=== PATIENT | female | born 1960 | race Caucasian/White ===

== ENCOUNTER 2018-05-28 13:36 | Emergency (ER) | payer MEDICARE ==
[~2018-05-28] VITALS: Ht 157.5 cm; Wt 66.4 kg
[2018-05-28] MEDS ORDERED: HYDROcodone/APAP 5/325 TABLET PO PRN (14:30)
[2018-05-28 14:36] LABS: BASOPHILS # (AUTO) 0.04 x10^3/uL (0-0.1); BASOPHILS % (AUTO) 0 % (0-1); EOSINOPHILS # (AUTO) 0.16 x10^3/uL (0-0.4); EOSINOPHILS % (AUTO) 2 % (1-7); LYMPHOCYTES # (AUTO) 1.52 x10^3/uL (1-3.4); LYMPHOCYTES % (AUTO) 16 % (22-44); MD NO; MEAN CORPUSCULAR HEMOGLOBIN 30.8 pg (27.0-34.8); MEAN CORPUSCULAR HGB CONC 33.8 g/dL (32.4-35.8); MEAN PLATELET VOLUME 8.2 fL (7.4-10.4); MONOCYTES # (AUTO) 0.49 x10^3/uL (0.2-0.8); MONOCYTES % (AUTO) 5 % (2-9); NEUTROPHILS # (AUTO) 7.41 x10^3/uL (1.8-6.8); NEUTROPHILS % (AUTO) 77 % (42-75); PLATELET COUNT 285 x10^3/uL (130-400); RED BLOOD COUNT 4.73 x10^6/uL (3.82-5.3)
[2018-05-28 14:45] LABS: ALBUMIN 3.3 g/dL (3.4-5.0); ANION GAP 5 mmol/L (5-15); CALCIUM 9.6 mg/dL (8.5-10.1); CHLORIDE 108 mmol/L (98-107); CREATININE 0.87 mg/dL (0.55-1.02)
--- NOTE | 2018-05-28 14:58 | NUR ---
patient at xray now, accompanied by friend, MD Bean has assessed patient at bedside, GHASSAN KERR on room air prior to leaving rom for xray
[2018-05-28 15:04] LABS: INTERNATIONAL NORMALIZED RATIO 8.63 (0.93-1.1); PROTHROMBIN TIME 84.2 Seconds (9.6-11.5)
[2018-05-28] MEDS ORDERED: HYDROcodone/APAP 5/325 TABLET ONE (15:06)
--- NOTE | 2018-05-28 15:29 | NUR ---
patient has been switched to room 15, this RN to provide report to accepting RN
--- NOTE | 2018-05-28 16:00 | NUR ---
Report from Alberto HENRY.
--- NOTE | 2018-05-28 16:02 | NUR ---
Pt is resting in bed, talking with visitor. Pt is alert, oriented, with NAD. Pt is connected to the monitor. Call light within reach.
--- NOTE | 2018-05-28 16:47 | NUR ---
Tech at bedside for splint.
--- NOTE | 2018-05-28 17:24 | NUR ---
PHARMACY CALLED TO SEND MEDICATION.
[2018-05-28 17:25] VITALS: BP 117/52
[2018-05-28] MEDS ORDERED: PHYTONADIONE 5 MG TABLET PO ONE (17:30)
--- NOTE | 2018-05-28 17:58 | NUR ---
Patient given discharge instructions and they have confirmed that they understand the instructions. Patient ambulatory with steady gait.
== END 2018-05-28 18:17 | disposition home or self-care (01) ==
LOC: ED 15:09
DX: S52.122A Displaced fracture of head of left radius, initial encounter for closed fracture (principal); S20.212A Contusion of left front wall of thorax, initial encounter; I48.91 Unspecified atrial fibrillation; D68.32 Hemorrhagic disorder due to extrinsic circulating anticoagulants; Z95.0 Presence of cardiac pacemaker; W19.XXXA Unspecified fall, initial encounter; Y93.89 Activity, other specified; Y92.89 Other specified places as the place of occurrence of the external cause; Y99.8 Other external cause status
CPT/HCPCS: 29105; 36415; 71045; 71250; 80048; 82040; 85025; 85610; 99284

== ENCOUNTER 2018-06-24 07:35 | Day surgery (SDC) | payer MEDICARE ==
[~2018-06-24] VITALS: Ht 154.9 cm; Wt 63.0 kg
[2018-06-24 08:09] VITALS: BP 96/46
[2018-06-24] MEDS ORDERED: LISI2.5T PO (08:30)
[2018-06-24] MEDS ORDERED: FLUO40CA2 PO (08:30)
[2018-06-24] MEDS ORDERED: POTA10CA PO (08:30)
[2018-06-24] MEDS ORDERED: CETI-158 PO (08:30)
[2018-06-24] MEDS ORDERED: WARF2.5T32 PO (08:30)
[2018-06-24] MEDS ORDERED: CARV6.2512 PO (08:30)
[2018-06-24] MEDS ORDERED: AMIO200T42 PO (08:30)
[2018-06-24] MEDS ORDERED: TRAZ50TA66 PO (08:30)
[2018-06-24] MEDS ORDERED: SPIR25TA5 PO ×2 (08:30)
[2018-06-24] MEDS ORDERED: WARF-36 PO (08:30)
[2018-06-24] MEDS ORDERED: SODIUM CHLORIDE 0.9% 1,000 ML IV SCH (08:30)
[2018-06-24] MEDS ORDERED: FURO-92 PO (08:31)
[2018-06-24 08:34] LABS: BASOPHILS # (AUTO) 0.05 x10^3/uL (0-0.1); BASOPHILS % (AUTO) 1 % (0-1); EOSINOPHILS # (AUTO) 0.04 x10^3/uL (0-0.4); EOSINOPHILS % (AUTO) 0 % (1-7); LYMPHOCYTES % (AUTO) 18 % (22-44); MD NO; MEAN CORPUSCULAR HEMOGLOBIN 30.6 pg (27.0-34.8); MEAN CORPUSCULAR HGB CONC 33.4 g/dL (32.4-35.8); MEAN CORPUSCULAR VOLUME 91.5 fL (80-100); MEAN PLATELET VOLUME 8.1 fL (7.4-10.4); MONOCYTES # (AUTO) 1.33 x10^3/uL (0.2-0.8); MONOCYTES % (AUTO) 14 % (2-9); NEUTROPHILS # (AUTO) 6.43 x10^3/uL (1.8-6.8); NEUTROPHILS % (AUTO) 67 % (42-75); PLATELET COUNT 232 x10^3/uL (130-400); RED BLOOD COUNT 5.39 x10^6/uL (3.82-5.3); RED CELL DISTRIBUTION WIDTH 15.2 % (9.6-15.2)
[2018-06-24 08:40] LABS: INTERNATIONAL NORMALIZED RATIO 1.86 (0.93-1.1); PROTHROMBIN TIME 19.3 Seconds (9.6-11.5)
[2018-06-24 08:43] LABS: CALCIUM 10.5 mg/dL (8.5-10.1); CHLORIDE 99 mmol/L (98-107)
[2018-06-24 08:55] LABS: ALANINE AMINOTRANSFERASE 184 U/L (12-78); ALBUMIN 3.7 g/dL (3.4-5.0); ALKALINE PHOSPHATASE 237 U/L (45-117); ANION GAP 8 mmol/L (5-15); CHOL/HDL RATIO 2.9; CHOLESTEROL, TOTAL 190 mg/dL (140-239); CREATININE 1.57 mg/dL (0.55-1.02); HDL CHOL % 34 % (28-40); HDL CHOLESTEROL (DIRECT) 65 mg/dL (40-60); LDL CHOLESTEROL,CALCULATED 107 mg/dL (54-169); LDL/HDL RATIO 1.6 (0.5-3.0); TOTAL PROTEIN 8.3 g/dL (6.4-8.2); TRIGLYCERIDES 89 mg/dL (50-200); VLDL CHOLESTEROL 18 mg/dL (0-25)
[2018-06-24] MEDS ORDERED: EPINEPHRINE 1 MG/ML, 1ML ONE (15:10)
[2018-06-24] MEDS ORDERED: PROPOFOL 10 MG/ML, 20ML ONE (15:10)
== END 2018-06-24 12:56 | disposition home or self-care (01) ==
LOC: CACL 07:35 → EDSTATUS 09:30 → CACL 12:56
PROVIDERS: ATTEND Internal Medicine Cardiovascular Disease
DX: I48.0 Paroxysmal atrial fibrillation (principal); I42.9 Cardiomyopathy, unspecified; I34.0 Nonrheumatic mitral (valve) insufficiency; I36.1 Nonrheumatic tricuspid (valve) insufficiency; I10 Essential (primary) hypertension; Z88.1 Allergy status to other antibiotic agents; Z88.0 Allergy status to penicillin; Z88.8 Allergy status to other drugs, medicaments and biological substances; Z88.6 Allergy status to analgesic agent
CPT/HCPCS: 36415; 80053; 80061; 84436; 84443; 84481; 85025; 85610; 92960; 93312; 93321; 93325; J0171; J2704

== ENCOUNTER → 2018-07-14 | Outpatient (CLI) | payer MEDICARE ==
[~2018-07-14] MED LIST: AMIO200T42 PO; CARV6.2512 PO; CETI-158 PO; FLUO40CA2 PO; FURO-92 PO; LISI2.5T PO; POTA10CA PO; SPIR25TA5 PO; TRAZ50TA66 PO; WARF-36 PO; WARF2.5T32 PO
== END | disposition home or self-care (01) ==
LOC: CFH 14:25
PROVIDERS: ATTEND Family Medicine
DX: M47.817 Spondylosis without myelopathy or radiculopathy, lumbosacral region (principal)
CPT/HCPCS: 72100

== ENCOUNTER → 2018-08-24 | Outpatient (CLI) | payer MEDICARE | END | disposition home or self-care (01) | LOC: CFH 12:16 | PROVIDERS: ATTEND Family Medicine | DX: Z12.31 Encounter for screening mammogram for malignant neoplasm of breast (principal); Z88.0 Allergy status to penicillin; Z88.2 Allergy status to sulfonamides; Z88.8 Allergy status to other drugs, medicaments and biological substances | CPT/HCPCS: 77067 ==

== ENCOUNTER → 2018-09-17 | Outpatient (CLI) | payer MEDICARE | END | disposition home or self-care (01) | LOC: CFH 10:58 | PROVIDERS: ATTEND Physician Assistant | DX: S52.571A Other intraarticular fracture of lower end of right radius, initial encounter for closed fracture (principal); X58.XXXA Exposure to other specified factors, initial encounter; Y93.89 Activity, other specified; Y92.89 Other specified places as the place of occurrence of the external cause; Y99.8 Other external cause status ==

== ENCOUNTER 2018-10-08 13:02 | Outpatient (CLI) | payer MEDICARE | END 2018-10-08 23:59 | disposition home or self-care (01) | LOC: CFH 13:02 | PROVIDERS: ATTEND Family Medicine | DX: Z13.820 Encounter for screening for osteoporosis (principal); S52.501A Unspecified fracture of the lower end of right radius, initial encounter for closed fracture; M81.0 Age-related osteoporosis without current pathological fracture; X58.XXXA Exposure to other specified factors, initial encounter; Y93.89 Activity, other specified; Y92.89 Other specified places as the place of occurrence of the external cause; Y99.8 Other external cause status | CPT/HCPCS: 77080 ==

== ENCOUNTER 2019-03-17 10:06 | Inpatient (IN) | payer MEDICARE ==
[2019-03-16 10:27] VITALS: BP 125/45
[2019-03-16 10:43] LABS: ANION GAP 5 mmol/L (5-15); CALCIUM 9.9 mg/dL (8.5-10.1); CHLORIDE 107 mmol/L (98-107)
[~2019-03-17] VITALS: Ht 154.9 cm; Wt 69.8 kg
[~2019-03-17 10:06] MED LIST changes: +ALEN70TA6 PO; +DIAZ2TAB3 PO
[2019-03-17] MEDS ORDERED: SODIUM CHLORIDE 0.9% 1,000 ML IV SCH (11:00)
[2019-03-17 11:06] LABS: INTERNATIONAL NORMALIZED RATIO 2.67 (0.93-1.1)
[2019-03-17] MEDS ORDERED: CEFAZOLIN PMX 1GM/50ML 0 ML ONE (11:42)
[2019-03-17] MEDS ORDERED: LIDOCAINE 1%, 20ML ONE (11:43)
[2019-03-17] MEDS ORDERED: CEFAZOLIN 1,000 MG ONE (11:43)
[2019-03-17] MEDS ORDERED: VANCOMYCIN PMX 1GM/200ML 200 ML ONE (11:54)
[2019-03-17] MEDS ORDERED: VANCOMYCIN 500 MG ONE (11:54)
[2019-03-17] MEDS ORDERED: SUCCINYLCHOLINE 20 MG/ML, 10ML ONE (12:02)
[2019-03-17] MEDS ORDERED: EPHEDRINE 50 MG/ML, 1ML ONE ×2 (12:02)
[2019-03-17] MEDS ORDERED: ONDANSETRON 2MG/ML, 2ML ONE (12:02)
[2019-03-17] MEDS ORDERED: PROPOFOL 10 MG/ML, 20ML ONE (12:02)
[2019-03-17] MEDS ORDERED: FENTANYL PF 100 MCG/2ML ONE (12:05)
[2019-03-17] MEDS ORDERED: DEXAMETHASONE 4 MG/ML, 1ML ONE (12:08)
[2019-03-17] MEDS ORDERED: MIDAZOLAM 1 MG/ML, 2ML ONE (13:03)
[2019-03-17] MEDS ORDERED: HOLD MEDICATION MC PRN (13:30)
[2019-03-17] MEDS ORDERED: ALENDRONATE 70 MG TABLET PO SCH (13:30)
[2019-03-17] MEDS ORDERED: DIAZEPAM 5 MG/ML, 2ML IVPush PRN (14:00)
[2019-03-17] MEDS ORDERED: ONDANSETRON ODT 8 MG PO PRN (14:00)
[2019-03-17] MEDS ORDERED: FENTANYL PF 100 MCG/2ML IV PRN (14:00)
[2019-03-17] MEDS ORDERED: OXYcodone 5 MG/5 ML ORAL.SOL UDC PO PRN (14:00)
[2019-03-17] MEDS ORDERED: HYDROmorphone 2 MG/ML, 1ML IVPush PRN (14:00)
[2019-03-17] MEDS ORDERED: LABETALOL 5MG/ML, 20ML IV PRN (14:00)
[2019-03-17] MEDS ORDERED: ACETAMINOPHEN 325 MG TABLET PO PRN (14:00)
[2019-03-17] MEDS ORDERED: hydrALAzine 20 MG/ML, 1ML IV PRN (14:00)
[2019-03-17] MEDS ORDERED: ONDANSETRON 2MG/ML, 2ML IV PRN (14:00)
[2019-03-17] MEDS ORDERED: ALBUTEROL SULFATE 2.5 MG/3 ML NPPB PRN (14:00)
[2019-03-17] MEDS ORDERED: EPHEDRINE 50 MG/ML, 1ML IVPush PRN (14:00)
[2019-03-17] MEDS ORDERED: PROMETHAZINE 12.5 MG SUPP PR PRN (14:00)
[2019-03-17] MEDS ORDERED: MEPERIDINE/PF 25MG/ML,1ML IVPush PRN (14:00)
[2019-03-17] MEDS ORDERED: PROMETHAZINE 25 MG/ML, 1ML IV PRN (14:00)
[2019-03-17] MEDS ORDERED: HALOPERIDOL 5 MG/ML IV PRN (14:00)
[2019-03-17] MEDS ORDERED: MIDAZOLAM 1 MG/ML, 2ML IV PRN (14:00)
[2019-03-17] MEDS: ACETAMINOPHEN 325 MG TABLET PO PRN (15:36)
[2019-03-17] MEDS ORDERED: SODIUM CHLORIDE 0.9% IVPB SCH ×2 (17:00→18:00)
[2019-03-17] MEDS ORDERED: ERAVACYCLINE IVPB SCH ×2 (17:00→18:00)
[2019-03-17] MEDS: ERAVACYCLINE IVPB SCH ×2 (18:34→19:10)
[2019-03-17] MEDS: SODIUM CHLORIDE 0.9% IVPB SCH ×2 (18:34→19:10)
[2019-03-17 19:20] VITALS: BP 102/64
[2019-03-17] MEDS: CARVEDILOL 6.25 MG TABLET PO SCH (20:53)
[2019-03-17] MEDS: SODIUM CHLORIDE FLUSH 10ML SYR IVF SCH (20:54)
[2019-03-17] MEDS: SPIRONOLACTONE 25 MG TABLET PO SCH (21:00)
[2019-03-17] MEDS ORDERED: FUROSEMIDE 40 MG TABLET PO SCH (21:00)
[2019-03-17] MEDS: DIAZEPAM 2 MG TABLET PO SCH (21:30)
[2019-03-17] MEDS: LISINOPRIL 5 MG TABLET PO SCH (21:31)
[2019-03-18 01:25] VITALS: BP 107/56
[2019-03-18] MEDS: SODIUM CHLORIDE 0.9% IVPB SCH ×2 (06:30→19:59)
[2019-03-18] MEDS: ERAVACYCLINE IVPB SCH ×2 (06:30→19:59)
[2019-03-18 07:35] VITALS: BP 107/61
[2019-03-18] MEDS: CARVEDILOL 6.25 MG TABLET PO SCH ×2 (08:10→19:59)
[2019-03-18] MEDS: AMIODARONE 200 MG TABLET PO SCH (08:10)
[2019-03-18] MEDS: SPIRONOLACTONE 25 MG TABLET PO SCH ×2 (08:10→20:00)
[2019-03-18] MEDS: FUROSEMIDE 40 MG TABLET PO SCH ×2 (08:11→16:33)
[2019-03-18] MEDS: ACETAMINOPHEN 325 MG TABLET PO PRN (08:11)
[2019-03-18] MEDS: CETIRIZINE 10 MG TABLET PO SCH (08:11)
[2019-03-18] MEDS: FLUOXETINE HCL 20 MG CAPSULE PO SCH (08:11)
[2019-03-18] MEDS: POTASSIUM CHLORIDE 10 MEQ TABLET.ER PO SCH (08:14)
[2019-03-18] MEDS: SODIUM CHLORIDE FLUSH 10ML SYR IVF SCH ×2 (08:15→20:00)
[2019-03-18] MEDS ORDERED: LISINOPRIL 5 MG TABLET PO SCH (09:00)
[2019-03-18 09:02] LABS: BASOPHILS # (AUTO) 0.02 x10^3/uL (0-0.1); BASOPHILS % (AUTO) 0 % (0-1); EOSINOPHILS % (AUTO) 0 % (1-7); LYMPHOCYTES # (AUTO) 1.09 x10^3/uL (1-3.4); LYMPHOCYTES % (AUTO) 8 % (22-44); MD NO; MEAN CORPUSCULAR HEMOGLOBIN 31.2 pg (27.0-34.8); MEAN CORPUSCULAR VOLUME 94.5 fL (80-100); MEAN PLATELET VOLUME 7.9 fL (7.4-10.4); MONOCYTES # (AUTO) 0.41 x10^3/uL (0.2-0.8); MONOCYTES % (AUTO) 3 % (2-9); NEUTROPHILS # (AUTO) 11.62 x10^3/uL (1.8-6.8); NEUTROPHILS % (AUTO) 88 % (42-75); PLATELET COUNT 246 x10^3/uL (130-400); RED BLOOD COUNT 4.58 x10^6/uL (3.82-5.3); RED CELL DISTRIBUTION WIDTH 14.9 % (9.6-15.2)
[2019-03-18 09:09] LABS: ANION GAP 6 mmol/L (5-15); CHLORIDE 109 mmol/L (98-107)
[2019-03-18] MEDS: HYDROcodone/APAP 5/325 TABLET PO PRN ×2 (11:30→16:33)
[2019-03-18 12:12] LABS: HCT (SEDRATE) 42.8 % (34.6-47.8)
[2019-03-18 12:19] LABS: ALBUMIN 3.3 g/dL (3.4-5.0); BILIRUBIN, DIRECT 0.4 mg/dL (0.1-0.2)
[2019-03-18 12:23] LABS: BILIRUBIN,INDIRECT 0.7 mg/dL (0.0-2.0); BILIRUBIN,TOTAL 1.1 mg/dL (0.2-1.0); C-REACTIVE PROTEIN, QUANT 0.9 mg/dL (0.02-0.49); TOTAL PROTEIN 7.6 g/dL (6.4-8.2)
[2019-03-18 13:19] VITALS: BP 106/62
[2019-03-18] MEDS ORDERED: LIDOCAINE 1%, 10ML ONE (17:11)
[2019-03-18 19:12] VITALS: BP 113/57
[2019-03-18] MEDS: LISINOPRIL 5 MG TABLET PO SCH (20:00)
[2019-03-18] MEDS: DIAZEPAM 2 MG TABLET PO SCH (21:42)
[2019-03-19 00:46] VITALS: BP 98/58
[2019-03-19 05:36] LABS: BASOPHILS # (AUTO) 0.02 x10^3/uL (0-0.1); BASOPHILS % (AUTO) 0 % (0-1); EOSINOPHILS % (AUTO) 0 % (1-7); LYMPHOCYTES # (AUTO) 1.76 x10^3/uL (1-3.4); LYMPHOCYTES % (AUTO) 15 % (22-44); MD NO; MEAN CORPUSCULAR HEMOGLOBIN 31.4 pg (27.0-34.8); MEAN CORPUSCULAR HGB CONC 32.6 g/dL (32.4-35.8); MEAN CORPUSCULAR VOLUME 96.1 fL (80-100); MEAN PLATELET VOLUME 8.3 fL (7.4-10.4); MONOCYTES # (AUTO) 0.86 x10^3/uL (0.2-0.8); MONOCYTES % (AUTO) 7 % (2-9); NEUTROPHILS % (AUTO) 78 % (42-75); PLATELET COUNT 241 x10^3/uL (130-400); RED BLOOD COUNT 4.43 x10^6/uL (3.82-5.3)
[2019-03-19 05:41] LABS: ALANINE AMINOTRANSFERASE 42 U/L (12-78); ANION GAP 5 mmol/L (5-15); CALCIUM 9.5 mg/dL (8.5-10.1); CHLORIDE 110 mmol/L (98-107); CREATININE 0.93 mg/dL (0.55-1.02)
[2019-03-19 05:43] LABS: ALKALINE PHOSPHATASE 136 U/L (45-117); BILIRUBIN,TOTAL 0.8 mg/dL (0.2-1.0)
[2019-03-19 07:22] VITALS: BP 97/59
[2019-03-19] MEDS: AMIODARONE 200 MG TABLET PO SCH (08:21)
[2019-03-19] MEDS: SODIUM CHLORIDE 0.9% IVPB SCH ×2 (08:21→20:54)
[2019-03-19] MEDS: ERAVACYCLINE IVPB SCH ×2 (08:21→20:54)
[2019-03-19] MEDS: FUROSEMIDE 40 MG TABLET PO SCH ×2 (08:21→16:44)
[2019-03-19] MEDS: CARVEDILOL 6.25 MG TABLET PO SCH ×2 (08:22→21:23)
[2019-03-19] MEDS: CETIRIZINE 10 MG TABLET PO SCH (08:22)
[2019-03-19] MEDS: FLUOXETINE HCL 20 MG CAPSULE PO SCH (08:22)
[2019-03-19] MEDS: SPIRONOLACTONE 25 MG TABLET PO SCH ×2 (08:22→21:00)
[2019-03-19] MEDS: SODIUM CHLORIDE FLUSH 10ML SYR IVF SCH ×2 (08:22→21:24)
[2019-03-19] MEDS: POTASSIUM CHLORIDE 10 MEQ TABLET.ER PO SCH (08:23)
[2019-03-19 14:02] VITALS: BP 94/62
[2019-03-19 19:14] VITALS: BP 112/56
[2019-03-19] MEDS: HYDROcodone/APAP 5/325 TABLET PO PRN (21:22)
[2019-03-19] MEDS: LISINOPRIL 5 MG TABLET PO SCH (21:23)
[2019-03-19] MEDS: DIAZEPAM 2 MG TABLET PO SCH (21:23)
[2019-03-20] MEDS: HYDROcodone/APAP 5/325 TABLET PO PRN (00:15)
[2019-03-20 00:35] VITALS: BP 125/76
[2019-03-20] MEDS: ALENDRONATE 70 MG TABLET PO SCH (06:47)
[2019-03-20 06:54] VITALS: BP 95/62
[2019-03-20] MEDS: FLUOXETINE HCL 20 MG CAPSULE PO SCH (09:33)
[2019-03-20] MEDS: AMIODARONE 200 MG TABLET PO SCH (09:33)
[2019-03-20] MEDS: FUROSEMIDE 40 MG TABLET PO SCH ×2 (09:33→15:11)
[2019-03-20] MEDS: CETIRIZINE 10 MG TABLET PO SCH (09:33)
[2019-03-20] MEDS: CARVEDILOL 6.25 MG TABLET PO SCH ×2 (09:34→21:32)
[2019-03-20] MEDS: SPIRONOLACTONE 25 MG TABLET PO SCH ×2 (09:34→21:32)
[2019-03-20] MEDS: ERAVACYCLINE IVPB SCH ×2 (10:41→21:31)
[2019-03-20] MEDS: SODIUM CHLORIDE 0.9% IVPB SCH ×2 (10:41→21:31)
[2019-03-20] MEDS: DOCUSATE 100 MG CAPSULE PO SCH ×2 (11:11→21:33)
[2019-03-20] MEDS: ENOXAPARIN 40 MG/0.4 ML SQ SCH (11:11)
[2019-03-20] MEDS: POTASSIUM CHLORIDE 10 MEQ TABLET.ER PO SCH (11:12)
[2019-03-20] MEDS: SODIUM CHLORIDE FLUSH 10ML SYR IVF SCH ×2 (11:13→21:33)
[2019-03-20 13:28] VITALS: BP 106/72
[2019-03-20 18:40] VITALS: BP 120/69
[2019-03-20] MEDS: LISINOPRIL 5 MG TABLET PO SCH (21:32)
[2019-03-20] MEDS: DIAZEPAM 2 MG TABLET PO SCH (21:43)
[2019-03-21 00:51] VITALS: BP 125/86
[2019-03-21 07:56] VITALS: BP 123/74
[2019-03-21] MEDS: CARVEDILOL 6.25 MG TABLET PO SCH ×2 (08:22→21:25)
[2019-03-21] MEDS: FUROSEMIDE 40 MG TABLET PO SCH ×2 (08:22→16:27)
[2019-03-21] MEDS: FLUOXETINE HCL 20 MG CAPSULE PO SCH (08:22)
[2019-03-21] MEDS: CETIRIZINE 10 MG TABLET PO SCH (08:22)
[2019-03-21] MEDS: SODIUM CHLORIDE FLUSH 10ML SYR IVF SCH ×2 (08:23→21:26)
[2019-03-21] MEDS: SPIRONOLACTONE 25 MG TABLET PO SCH ×2 (08:23→21:14)
[2019-03-21] MEDS: POTASSIUM CHLORIDE 10 MEQ TABLET.ER PO SCH (08:23)
[2019-03-21] MEDS: DOCUSATE 100 MG CAPSULE PO SCH ×2 (08:23→21:18)
[2019-03-21] MEDS: AMIODARONE 200 MG TABLET PO SCH (08:23)
[2019-03-21] MEDS: ERAVACYCLINE IVPB SCH ×2 (09:06→21:24)
[2019-03-21] MEDS: SODIUM CHLORIDE 0.9% IVPB SCH ×2 (09:06→21:24)
[2019-03-21] MEDS: ENOXAPARIN 40 MG/0.4 ML SQ SCH (10:10)
[2019-03-21 12:25] VITALS: BP 105/69
[2019-03-21 18:47] VITALS: BP 126/69
[2019-03-21] MEDS: DIAZEPAM 2 MG TABLET PO SCH (21:24)
[2019-03-21] MEDS: LISINOPRIL 5 MG TABLET PO SCH (21:25)
[2019-03-21] MEDS: HYDROcodone/APAP 5/325 TABLET PO PRN (23:59)
[2019-03-22 01:22] VITALS: BP 96/56
[2019-03-22 06:45] VITALS: BP 92/54
[2019-03-22] MEDS: DOCUSATE 100 MG CAPSULE PO SCH ×2 (09:00→21:00)
[2019-03-22] MEDS: POTASSIUM CHLORIDE 10 MEQ TABLET.ER PO SCH (09:00)
[2019-03-22 09:10] VITALS: BP 110/62
[2019-03-22] MEDS: SODIUM CHLORIDE 0.9% IVPB SCH ×2 (09:11→21:00)
[2019-03-22] MEDS: ERAVACYCLINE IVPB SCH ×2 (09:11→21:00)
[2019-03-22] MEDS: AMIODARONE 200 MG TABLET PO SCH (09:12)
[2019-03-22] MEDS: CETIRIZINE 10 MG TABLET PO SCH (09:19)
[2019-03-22] MEDS: FLUOXETINE HCL 20 MG CAPSULE PO SCH (09:20)
[2019-03-22] MEDS: SPIRONOLACTONE 25 MG TABLET PO SCH ×2 (09:20→21:00)
[2019-03-22] MEDS: FUROSEMIDE 40 MG TABLET PO SCH ×2 (09:21→16:06)
[2019-03-22] MEDS: CARVEDILOL 6.25 MG TABLET PO SCH ×2 (09:22→21:00)
[2019-03-22] MEDS: ENOXAPARIN 40 MG/0.4 ML SQ SCH (09:23)
[2019-03-22] MEDS: SODIUM CHLORIDE FLUSH 10ML SYR IVF SCH ×2 (09:23→21:00)
[2019-03-22 12:52] VITALS: BP 126/75
[2019-03-22] MEDS: HYDROcodone/APAP 5/325 TABLET PO PRN ×2 (16:33→21:16)
[2019-03-22 20:34] VITALS: BP 129/76
[2019-03-22] MEDS: DIAZEPAM 2 MG TABLET PO SCH (21:00)
[2019-03-22] MEDS: LISINOPRIL 5 MG TABLET PO SCH (21:00)
[2019-03-23 01:09] VITALS: BP 105/70
[2019-03-23 09:00] VITALS: BP 108/74
[2019-03-23] MEDS: FLUOXETINE HCL 20 MG CAPSULE PO SCH (09:46)
[2019-03-23] MEDS: CARVEDILOL 6.25 MG TABLET PO SCH ×2 (09:47→21:19)
[2019-03-23] MEDS: POTASSIUM CHLORIDE 10 MEQ TABLET.ER PO SCH (09:47)
[2019-03-23] MEDS: CETIRIZINE 10 MG TABLET PO SCH (09:47)
[2019-03-23] MEDS: AMIODARONE 200 MG TABLET PO SCH (09:47)
[2019-03-23] MEDS: FUROSEMIDE 40 MG TABLET PO SCH ×2 (09:48→16:23)
[2019-03-23] MEDS: SPIRONOLACTONE 25 MG TABLET PO SCH ×2 (09:48→21:20)
[2019-03-23] MEDS: SODIUM CHLORIDE FLUSH 10ML SYR IVF SCH ×2 (09:48→21:20)
[2019-03-23] MEDS: DOCUSATE 100 MG CAPSULE PO SCH ×2 (09:48→21:20)
[2019-03-23] MEDS: ENOXAPARIN 40 MG/0.4 ML SQ SCH (09:48)
[2019-03-23] MEDS: ERAVACYCLINE IVPB SCH ×2 (10:08→21:19)
[2019-03-23] MEDS: SODIUM CHLORIDE 0.9% IVPB SCH ×2 (10:08→21:19)
[2019-03-23 14:02] VITALS: BP 104/68
[2019-03-23] MEDS: HYDROcodone/APAP 5/325 TABLET PO PRN ×2 (14:06→21:36)
[2019-03-23 19:29] VITALS: BP 116/60
[2019-03-23] MEDS: LISINOPRIL 5 MG TABLET PO SCH (21:19)
[2019-03-23] MEDS: DIAZEPAM 2 MG TABLET PO SCH (21:20)
[2019-03-24 01:15] VITALS: BP 113/69
[2019-03-24 07:42] VITALS: BP 127/86
[2019-03-24] MEDS: SODIUM CHLORIDE FLUSH 10ML SYR IVF SCH ×2 (08:41→21:27)
[2019-03-24] MEDS: CARVEDILOL 6.25 MG TABLET PO SCH ×2 (08:42→21:28)
[2019-03-24] MEDS: CETIRIZINE 10 MG TABLET PO SCH (08:42)
[2019-03-24] MEDS: FLUOXETINE HCL 20 MG CAPSULE PO SCH (08:43)
[2019-03-24] MEDS: POTASSIUM CHLORIDE 10 MEQ TABLET.ER PO SCH (08:43)
[2019-03-24] MEDS: FUROSEMIDE 40 MG TABLET PO SCH ×2 (08:43→15:35)
[2019-03-24] MEDS: AMIODARONE 200 MG TABLET PO SCH (08:43)
[2019-03-24] MEDS: DOCUSATE 100 MG CAPSULE PO SCH ×2 (08:44→21:28)
[2019-03-24] MEDS: SPIRONOLACTONE 25 MG TABLET PO SCH ×2 (08:48→21:28)
[2019-03-24] MEDS: ERAVACYCLINE IVPB SCH ×2 (09:20→21:27)
[2019-03-24] MEDS: SODIUM CHLORIDE 0.9% IVPB SCH ×2 (09:20→21:27)
[2019-03-24] MEDS: ENOXAPARIN 40 MG/0.4 ML SQ SCH (09:21)
[2019-03-24] MEDS: HYDROcodone/APAP 5/325 TABLET PO PRN ×3 (10:18→21:47)
[2019-03-24 14:12] VITALS: BP 95/63
[2019-03-24 18:45] VITALS: BP 111/51
[2019-03-24] MEDS: DIAZEPAM 2 MG TABLET PO SCH (21:28)
[2019-03-24] MEDS: LISINOPRIL 5 MG TABLET PO SCH (21:29)
[2019-03-25 02:00] VITALS: BP 129/59
[2019-03-25 05:30] LABS: CREATININE 0.84 mg/dL (0.55-1.02)
[2019-03-25 07:29] VITALS: BP 112/50
[2019-03-25] MEDS: FUROSEMIDE 40 MG TABLET PO SCH ×2 (08:03→15:29)
[2019-03-25] MEDS: POTASSIUM CHLORIDE 10 MEQ TABLET.ER PO SCH (08:03)
[2019-03-25] MEDS: SPIRONOLACTONE 25 MG TABLET PO SCH ×2 (08:04→21:22)
[2019-03-25] MEDS: CETIRIZINE 10 MG TABLET PO SCH (08:04)
[2019-03-25] MEDS: FLUOXETINE HCL 20 MG CAPSULE PO SCH (08:04)
[2019-03-25] MEDS: AMIODARONE 200 MG TABLET PO SCH (08:04)
[2019-03-25] MEDS: DOCUSATE 100 MG CAPSULE PO SCH ×2 (08:04→21:00)
[2019-03-25] MEDS: CARVEDILOL 6.25 MG TABLET PO SCH ×2 (08:04→21:22)
[2019-03-25] MEDS: SODIUM CHLORIDE FLUSH 10ML SYR IVF SCH ×2 (08:05→22:00)
[2019-03-25] MEDS: ENOXAPARIN 40 MG/0.4 ML SQ SCH (09:26)
[2019-03-25] MEDS: ERAVACYCLINE IVPB SCH ×2 (09:26→22:00)
[2019-03-25] MEDS: SODIUM CHLORIDE 0.9% IVPB SCH ×2 (09:26→22:00)
[2019-03-25] MEDS: HYDROcodone/APAP 5/325 TABLET PO PRN (12:44)
[2019-03-25 13:25] VITALS: BP 129/84
[2019-03-25 18:42] VITALS: BP 115/77
[2019-03-25] MEDS: DIAZEPAM 2 MG TABLET PO SCH (21:22)
[2019-03-25] MEDS: LISINOPRIL 5 MG TABLET PO SCH (21:23)
[2019-03-26 01:09] VITALS: BP 106/70
[2019-03-26] MEDS: FLUOXETINE HCL 20 MG CAPSULE PO SCH (08:12)
[2019-03-26] MEDS: POTASSIUM CHLORIDE 10 MEQ TABLET.ER PO SCH (08:12)
[2019-03-26] MEDS: AMIODARONE 200 MG TABLET PO SCH (08:12)
[2019-03-26] MEDS: CETIRIZINE 10 MG TABLET PO SCH (08:12)
[2019-03-26] MEDS: SPIRONOLACTONE 25 MG TABLET PO SCH ×2 (08:13→20:26)
[2019-03-26] MEDS: CARVEDILOL 6.25 MG TABLET PO SCH ×2 (08:13→20:18)
[2019-03-26] MEDS: FUROSEMIDE 40 MG TABLET PO SCH ×2 (08:15→14:59)
[2019-03-26] MEDS: DOCUSATE 100 MG CAPSULE PO SCH ×2 (08:15→20:19)
[2019-03-26 08:54] VITALS: BP 133/74
[2019-03-26] MEDS: SODIUM CHLORIDE 0.9% IVPB SCH ×2 (09:12→20:17)
[2019-03-26] MEDS: ERAVACYCLINE IVPB SCH ×2 (09:12→20:17)
[2019-03-26] MEDS: SODIUM CHLORIDE FLUSH 10ML SYR IVF SCH ×2 (09:12→20:28)
[2019-03-26] MEDS: ENOXAPARIN 40 MG/0.4 ML SQ SCH (09:17)
[2019-03-26] MEDS: HYDROcodone/APAP 5/325 TABLET PO PRN (12:54)
[2019-03-26 13:24] VITALS: BP 121/80
[2019-03-26] MEDS: DIAZEPAM 2 MG TABLET PO SCH (20:18)
[2019-03-26] MEDS: LISINOPRIL 5 MG TABLET PO SCH (20:18)
[2019-03-26 21:56] VITALS: BP 102/66
[2019-03-27 03:24] VITALS: BP 121/69
[2019-03-27] MEDS: FUROSEMIDE 40 MG TABLET PO SCH ×2 (06:52→17:03)
[2019-03-27] MEDS: ALENDRONATE 70 MG TABLET PO SCH (06:52)
[2019-03-27 08:33] VITALS: BP 147/82
[2019-03-27] MEDS: SPIRONOLACTONE 25 MG TABLET PO SCH (09:09)
[2019-03-27] MEDS: AMIODARONE 200 MG TABLET PO SCH (09:09)
[2019-03-27] MEDS: DOCUSATE 100 MG CAPSULE PO SCH ×2 (09:09→21:00)
[2019-03-27] MEDS: CARVEDILOL 6.25 MG TABLET PO SCH ×2 (09:09→21:37)
[2019-03-27] MEDS: FLUOXETINE HCL 20 MG CAPSULE PO SCH (09:09)
[2019-03-27] MEDS: ENOXAPARIN 40 MG/0.4 ML SQ SCH (09:10)
[2019-03-27] MEDS: SODIUM CHLORIDE 0.9% IVPB SCH ×2 (09:10→21:38)
[2019-03-27] MEDS: CETIRIZINE 10 MG TABLET PO SCH (09:10)
[2019-03-27] MEDS: POTASSIUM CHLORIDE 10 MEQ TABLET.ER PO SCH (09:10)
[2019-03-27] MEDS: ERAVACYCLINE IVPB SCH ×2 (09:10→21:38)
[2019-03-27] MEDS: SODIUM CHLORIDE FLUSH 10ML SYR IVF SCH ×2 (09:20→21:38)
[2019-03-27] MEDS: HYDROcodone/APAP 5/325 TABLET PO PRN (13:49)
[2019-03-27 14:40] VITALS: BP 144/78
[2019-03-27] MEDS ORDERED: SPIRONOLACTONE 25 MG TABLET PO SCH (17:00)
[2019-03-27 18:46] VITALS: BP 134/66
[2019-03-27] MEDS ORDERED: DIAZEPAM 5 MG TABLET ONE (21:15)
[2019-03-27] MEDS: LISINOPRIL 5 MG TABLET PO SCH (21:37)
[2019-03-27] MEDS: DIAZEPAM 2 MG TABLET PO SCH (21:39)
[2019-03-28 01:05] VITALS: BP 102/48
[2019-03-28] MEDS: FUROSEMIDE 40 MG TABLET PO SCH ×2 (06:09→15:15)
[2019-03-28 06:35] LABS: BASOPHILS # (AUTO) 0.06 x10^3/uL (0-0.1); MD NO; RED CELL DISTRIBUTION WIDTH 15.7 % (9.6-15.2)
[2019-03-28 06:44] LABS: ALANINE AMINOTRANSFERASE 58 U/L (12-78); ALBUMIN 2.7 g/dL (3.4-5.0); ANION GAP 6 mmol/L (5-15); CALCIUM 8.9 mg/dL (8.5-10.1); CHLORIDE 105 mmol/L (98-107); CREATININE 0.79 mg/dL (0.55-1.02)
[2019-03-28 06:51] LABS: ALKALINE PHOSPHATASE 177 U/L (45-117); BASOPHILS % (AUTO) 1 % (0-1); BILIRUBIN,TOTAL 1.6 mg/dL (0.2-1.0); EOSINOPHILS # (AUTO) 0.27 x10^3/uL (0-0.4); EOSINOPHILS % (AUTO) 3 % (1-7); LYMPHOCYTES # (AUTO) 2.57 x10^3/uL (1-3.4); LYMPHOCYTES % (AUTO) 28 % (22-44); MEAN CORPUSCULAR HEMOGLOBIN 31.5 pg (27.0-34.8); MEAN CORPUSCULAR HGB CONC 33.1 g/dL (32.4-35.8); MEAN CORPUSCULAR VOLUME 95.2 fL (80-100); MEAN PLATELET VOLUME 9.4 fL (7.4-10.4); MONOCYTES # (AUTO) 1.07 x10^3/uL (0.2-0.8); MONOCYTES % (AUTO) 12 % (2-9); NEUTROPHILS # (AUTO) 5.26 x10^3/uL (1.8-6.8); NEUTROPHILS % (AUTO) 57 % (42-75); PLATELET COUNT 177 x10^3/uL (130-400); RED BLOOD COUNT 4.41 x10^6/uL (3.82-5.3); TOTAL PROTEIN 6.5 g/dL (6.4-8.2)
[2019-03-28 07:33] VITALS: BP 130/78
[2019-03-28] MEDS: SODIUM CHLORIDE 0.9% IVPB SCH ×2 (09:07→21:36)
[2019-03-28] MEDS: ERAVACYCLINE IVPB SCH ×2 (09:07→21:36)
[2019-03-28] MEDS: ENOXAPARIN 40 MG/0.4 ML SQ SCH (09:08)
[2019-03-28] MEDS: SPIRONOLACTONE 25 MG TABLET PO SCH ×2 (09:09→15:15)
[2019-03-28] MEDS: FLUOXETINE HCL 20 MG CAPSULE PO SCH (09:09)
[2019-03-28] MEDS: AMIODARONE 200 MG TABLET PO SCH (09:10)
[2019-03-28] MEDS: DOCUSATE 100 MG CAPSULE PO SCH ×2 (09:11→21:37)
[2019-03-28] MEDS: CARVEDILOL 6.25 MG TABLET PO SCH ×2 (09:11→21:37)
[2019-03-28] MEDS: CETIRIZINE 10 MG TABLET PO SCH (09:12)
[2019-03-28] MEDS: POTASSIUM CHLORIDE 10 MEQ TABLET.ER PO SCH (09:12)
[2019-03-28] MEDS: SODIUM CHLORIDE FLUSH 10ML SYR IVF SCH ×2 (09:22→21:37)
[2019-03-28] MEDS: HYDROcodone/APAP 5/325 TABLET PO PRN ×2 (12:30→21:45)
[2019-03-28 14:50] VITALS: BP 103/65
[2019-03-28 19:36] VITALS: BP 139/71
[2019-03-28] MEDS: DIAZEPAM 2 MG TABLET PO SCH (21:37)
[2019-03-28] MEDS: LISINOPRIL 5 MG TABLET PO SCH (21:37)
[2019-03-29] MEDS ORDERED: ZOLPIDEM 10MG TABLET PO PRN
[2019-03-29 01:33] VITALS: BP 136/72
[2019-03-29 07:22] VITALS: BP 140/87
[2019-03-29] MEDS ORDERED: AMIODARONE 200 MG TABLET PO SCH (09:00)
[2019-03-29] MEDS: DOCUSATE 100 MG CAPSULE PO SCH (09:00)
[2019-03-29] MEDS: SPIRONOLACTONE 25 MG TABLET PO SCH ×2 (09:22→15:00)
[2019-03-29] MEDS: FLUOXETINE HCL 20 MG CAPSULE PO SCH (09:23)
[2019-03-29] MEDS: CETIRIZINE 10 MG TABLET PO SCH (09:23)
[2019-03-29] MEDS: POTASSIUM CHLORIDE 10 MEQ TABLET.ER PO SCH (09:23)
[2019-03-29] MEDS: CARVEDILOL 6.25 MG TABLET PO SCH (09:23)
[2019-03-29] MEDS: SODIUM CHLORIDE FLUSH 10ML SYR IVF SCH (09:24)
[2019-03-29] MEDS: ENOXAPARIN 40 MG/0.4 ML SQ SCH (09:24)
[2019-03-29] MEDS: FUROSEMIDE 40 MG TABLET PO SCH ×2 (09:27→16:00)
[2019-03-29] MEDS: SODIUM CHLORIDE 0.9% IVPB SCH (09:28)
[2019-03-29] MEDS: ERAVACYCLINE IVPB SCH (09:28)
[2019-03-29] MEDS ORDERED: ZOLPIDEM 5MG TABLET PO PRN (14:00)
[2019-03-29 14:26] VITALS: BP 115/72
== END 2019-03-29 16:24 | disposition short-term general hospital (02) | DRG 314 ==
LOC: CACL 10:06 → ORIP 13:28 → 5SO 14:56
PROVIDERS: ADMIT Internal Medicine Cardiovascular Disease; ATTEND Internal Medicine Cardiovascular Disease
PROC: 0W980ZZ Drainage of Chest Wall, Open Approach (ICD-10-PCS; 2019-03-17)
PROC: 02HV33Z Insertion of Infusion Device into Superior Vena Cava, Percutaneous Approach (ICD-10-PCS; principal; 2019-03-23)
PROC: B5181ZA Fluoroscopy of Superior Vena Cava using Low Osmolar Contrast, Guidance (ICD-10-PCS; 2019-03-23)
PROC: B548ZZA Ultrasonography of Superior Vena Cava, Guidance (ICD-10-PCS; 2019-03-23)
DX: T82.7XXA Infection and inflammatory reaction due to other cardiac and vascular devices, implants and grafts, initial encounter (principal); Q24.6 Congenital heart block; I44.2 Atrioventricular block, complete; I42.0 Dilated cardiomyopathy; D68.69 Other thrombophilia; I47.2 Ventricular tachycardia; I27.20 Pulmonary hypertension, unspecified; I08.1 Rheumatic disorders of both mitral and tricuspid valves; M81.0 Age-related osteoporosis without current pathological fracture; I11.0 Hypertensive heart disease with heart failure; Y83.8 Other surgical procedures as the cause of abnormal reaction of the patient, or of later complication, without mention of misadventure at the time of the procedure; I25.5 Ischemic cardiomyopathy; I48.0 Paroxysmal atrial fibrillation; Z79.83 Long term (current) use of bisphosphonates; Z79.899 Other long term (current) drug therapy; Z86.79 Personal history of other diseases of the circulatory system; Z95.0 Presence of cardiac pacemaker; Z87.891 Personal history of nicotine dependence; Z90.49 Acquired absence of other specified parts of digestive tract; Z88.0 Allergy status to penicillin; Z88.2 Allergy status to sulfonamides; Z88.6 Allergy status to analgesic agent; Z88.8 Allergy status to other drugs, medicaments and biological substances; Y92.89 Other specified places as the place of occurrence of the external cause
CPT/HCPCS: 10030; 33222; 36415; 36573; 71046; 80048; 80053; 80076; 82550; 82565; 82784; 82787; 84145; 85025; 85610; 85651; 86140; 87070; 87075; 87205; 93312; 93321; 93325; G0378; J0690; J1100; J1650; J2250; J2405; J2704; J3010; J3370; C1751; J0330; J7050